=== PATIENT | male | born 1990 | race Caucasian/White ===

== ENCOUNTER 2016-03-15 09:50 | Outpatient (CLI) | payer BC ==
[2016-03-16 08:33] LABS: *RAPID PLASMA REAGIN QUAL Non Reactive (Non Reactive)
[2016-03-19 13:22] LABS: HEPATITIS C VIRUS AB <0.1 s/co ratio (0.0-0.9)
== END 2016-03-15 23:59 | disposition home or self-care (01) ==
LOC: LAB 09:50
DX: I21.3 ST elevation (STEMI) myocardial infarction of unspecified site (principal)
CPT/HCPCS: 86592; 86803; 87340